=== PATIENT | female | born 1990 | race Caucasian/White ===

== ENCOUNTER 2021-02-07 14:20 | Emergency (ER) | payer SELFPAY ==
[~2021-02-07] VITALS: Ht 162.6 cm; Wt 63.5 kg
[~2021-02-07 14:20] MED LIST: RIZA10TA12
[2021-02-07 14:52] VITALS: BP 150/83
== END 2021-02-07 16:16 | disposition home or self-care (01) ==
LOC: ER 14:20
DX: S40.022A Contusion of left upper arm, initial encounter (principal); S16.1XXA Strain of muscle, fascia and tendon at neck level, initial encounter; F12.10 Cannabis abuse, uncomplicated; Z87.891 Personal history of nicotine dependence; Z88.6 Allergy status to analgesic agent; V32.0XXA Driver of three-wheeled motor vehicle injured in collision with two- or three-wheeled motor vehicle in nontraffic accident, initial encounter; Y93.89 Activity, other specified; Y92.410 Unspecified street and highway as the place of occurrence of the external cause; Y99.8 Other external cause status